=== PATIENT | male | born 1995 | race Hispanic/Latino ===

== ENCOUNTER 2019-08-01 16:16 | Emergency (ER) | payer SELFPAY ==
[2019-08-01 17:31] VITALS: BP 140/75
--- NOTE | 2019-08-01 17:48 | Emergency Department Report ---
Chief Complaint: Dental/Oral Stated Complaint: BOTTOM RT SIDE TOOTHACHE Time Seen by Provider: 08/01/19 17:45 - HPI History of Present Illness: pt is a 23 yo male who presents to the ED with c/o right lower dental pain that began a week ago. he denies any fever, chills, N/V, facial swelling. he states he has not seen a dentist in several years. he denies any PMHx or allergies to meds on exam: three cracked teeth present to the right lower jaw, dental caries present, no induration or edema of the gum, no facial edema, uvula is midline, no uvular edema VSS, mild tachycardia secondary to dental pain No clinical signs of total abscess or facial cellulitis pt is presenting with a non-medical emergency at this time medical screening examination performed and there is no threat to life or limb at this time pt needs to follow up with a dentist for further evaluation and management pt given formerly [facility] resources - Exam Vital Signs: Vital Signs 08/01/19 17:30 Temperature 97.8 F Pulse Rate 105 H Respiratory 16 Rate Blood Pressure 140/75 O2 Sat by Pulse 96 Oximetry MSE screening note: Focused history and physical exam performed. ED Disposition for MSE Clinical Impression: Cracked tooth, Dental caries Disposition: Z-07 MED SCREENING EXAM-LEFT Is pt being admited?: No Does the pt Need Aspirin: No Condition: Stable Instructions: Dental Caries (ED), Toothache (ED) Additional Instructions: may take tylenol or ibuprofen for any discomfort. please follow up with a dentist in the next 2-3 days. return to the emergency room for any new or worsening symptoms. Referrals: [facility] [Outside] - 2-3 Days Forms: Work/School Release Form(ED) Time of Disposition: 17:46 Print Language: YORUBA
== END 2019-08-01 18:00 | disposition left against medical advice (07) ==
LOC: ED 16:16
DX: K03.81 Cracked tooth (principal); K02.9 Dental caries, unspecified
CPT/HCPCS: 99281